=== PATIENT | female | born 1985 | race Two or more races ===

== ENCOUNTER 2020-03-17 20:58 | Emergency (ER) | payer MEDICAID ==
[~2020-03-17] VITALS: Ht 162.6 cm; Wt 110.2 kg
[2020-03-17 22:55] VITALS: BP 150/60
== END 2020-03-17 22:58 | disposition home or self-care (01) ==
LOC: ER 20:58
DX: R20.0 Anesthesia of skin (principal); H53.8 Other visual disturbances
CPT/HCPCS: 93005